=== PATIENT | male | born 1955 | race African-American/Black ===

== ENCOUNTER 2017-05-26 03:03 | Emergency (ER) | payer OTHER ==
[~2017-05-26] VITALS: Ht 182.9 cm; Wt 111.6 kg
[2017-05-26] MEDS ORDERED: LISINOPRIL-HCT1 EAC2 PO (03:17)
[2017-05-26] MEDS ORDERED: METFORMIN HCL500 MG PO (03:17)
[2017-05-26] MEDS ORDERED: NAPROSYN500 MG PO ×2 (03:18→04:33)
[2017-05-26] MEDS ORDERED: NEURONTIN 300300 M1 PO (03:18)
[2017-05-26] MEDS ORDERED: TRAMADOL 50 MG50 MG PO (04:33)
[2017-05-26 04:36] VITALS: BP 172/100
== END 2017-05-26 04:46 | disposition home or self-care (01) ==
LOC: ER 03:03
DX: S51.012A Laceration without foreign body of left elbow, initial encounter (principal); S46.912A Strain of unspecified muscle, fascia and tendon at shoulder and upper arm level, left arm, initial encounter; W01.198A Fall on same level from slipping, tripping and stumbling with subsequent striking against other object, initial encounter; Y93.89 Activity, other specified; Y92.002 Bathroom of unspecified non-institutional (private) residence as the place of occurrence of the external cause; Y99.8 Other external cause status